=== PATIENT | female | born 1975 | race Caucasian/White ===

== ENCOUNTER 2018-06-21 20:04 | Emergency (ER) | payer MEDICAID | END 2018-06-21 22:06 | disposition home or self-care (01) | LOC: FTE 20:04 | DX: J06.9 Acute upper respiratory infection, unspecified (principal) | CPT/HCPCS: 99282; Z7502 ==

== ENCOUNTER 2018-08-07 22:28 | Emergency (ER) | payer MEDICAID ==
[2018-08-08 01:09] LABS: URINE BLOOD (Dip) POC Negative (NEGATIVE); URINE GLUCOSE (Dip) POC Negative (NEGATIVE); URINE KETONES (Dip) POC Trace (NEGATIVE); URINE LEUKOCYTE EST (Dip) POC Negative (NEGATIVE); URINE NITRITE (Dip) POC Negative (NEGATIVE); URINE TOTAL PROTEIN POC 1+ (NEGATIVE)
[2018-08-08 01:09] LABS: URINE PH (Dip) POC 6.5 (5.0-8.5)
[2018-08-08] MEDS: DIPHENHYDRAMINE 50 MG INJ IV (01:11)
[2018-08-08] MEDS: FAMOTIDINE 20 MG INJ IV (01:11)
[2018-08-08] MEDS: METHYLPREDNISOLONE 125 MG INJ IV (01:11)
[2018-08-08] MEDS: SOD CHLORIDE 0.9% 1,000 ML IV (01:12)
[2018-08-08 01:26] LABS: ADD UMIC YES; UR ASCORBIC ACID 40 mg/dL (NEGATIVE); UR BACTERIA FEW /HPF (NONE SEEN); UR BILIRUBIN (Dip) NEGATIVE (NEGATIVE); UR BLOOD (Dip) NEGATIVE (NEGATIVE); UR CLARITY SLIGHTLY CLOUDY (CLEAR); UR COLOR YELLOW (YELLOW); UR GLUCOSE (Dip) NEGATIVE (NEGATIVE); UR KETONES (Dip) TRACE mg/dL (NEGATIVE); UR LEUKOCYTE ESTERASE (Dip) TRACE Leu/ul (NEGATIVE); UR MUCUS MODERATE /HPF (NONE SEEN); UR NITRITE (Dip) NEGATIVE (NEGATIVE); UR RBC 1 /HPF (0-5); UR SPECIFIC GRAVITY (Dip) 1.036 (1.003-1.030); UR SQUAMOUS EPITHELIAL CELL MODERATE /HPF (FEW); UR TOTAL PROTEIN (Dip) 1+ mg/dl (NEGATIVE); UR UROBILINOGEN (Dip) 2+ mg/dL (NEGATIVE); UR WBC 7 /HPF (0-5)
[2018-08-08] MEDS: OLOPATADINE 0.1% 5 ML OPH BOTH EYES (02:47)
== END 2018-08-08 05:46 | disposition home or self-care (01) ==
LOC: FTE 22:28
DX: H02.841 Edema of right upper eyelid (principal); T50.905A Adverse effect of unspecified drugs, medicaments and biological substances, initial encounter; H02.844 Edema of left upper eyelid
CPT/HCPCS: 71045; 81001; 81003; 96374; 96375; 99284-25